=== PATIENT | male | born 1990 | race Caucasian/White ===

== ENCOUNTER 2016-10-06 18:09 | Emergency (ER) | payer SELFPAY ==
[~2016-10-06] VITALS: Ht 190.5 cm; Wt 101.7 kg
--- OUTSIDE RECORDS SUMMARY | 2016-10-06 18:13 | XMS REPORT | Continuity of Care Document ---
Author Author [facility] [employer]. Organization [facility]. Address Unknown Phone Unavailable Allergies Medications Problems Procedures Results Encounters ACCT No. Visit Date/Time Discharge Status Pt. Type Provider Facility Loc./Unit Complaint [id number] 03/06/2014 10:20:00 2013 23:59:59 CLS Outpatient [id number] 01/28/2014 05:28:00 2013 06:01:00 DIS Emergency [id number] 11/04/2013 09:22:00 2013 23:59:59 CLS Outpatient
--- OUTSIDE RECORDS SUMMARY | 2016-10-06 18:15 | XMS REPORT | Continuity of Care Document ---
Author Author [facility] [employer]. Organization Via [facility]. Address Unknown Phone Unavailable Allergies Medications Problems Procedures Results Encounters ACCT No. Visit Date/Time Discharge Status Pt. Type Provider Facility Loc./Unit Complaint [id number] 03/06/2014 10:20:00 2013 23:59:59 CLS Outpatient [id number] 01/28/2014 05:28:00 2013 06:01:00 DIS Emergency [id number] 11/04/2013 09:22:00 2013 23:59:59 CLS Outpatient
[2016-10-06] MEDS ORDERED: HYDROmorphone 2 MG/ML (DILAUDID) 1 ML SYRINGE IM ONE (18:35)
[2016-10-06] MEDS ORDERED: PROMETHAZINE 25 MG/ML (PHENERGAN) 1 ML VIAL IM ONE (18:35)
--- NOTE | 2016-10-06 19:25 | Diagnostic Imaging Report ---
INDICATION: Right shoulder injury while lifting weights, pain. DISCUSSION: Three views of the right shoulder were obtained, no comparison. No fracture or dislocation. Alignment is anatomic. The glenohumeral and acromioclavicular joints are well maintained. Soft tissues are unremarkable. IMPRESSION: 1. Negative right shoulder. Dictated by: Dictated on workstation # [id number]
[2016-10-06] MEDS ORDERED: HYDR-3702 PO (20:00)
[2016-10-06 20:09] VITALS: BP 129/76
== END 2016-10-06 20:10 | disposition home or self-care (01) ==
LOC: ED 18:11
DX: G89.11 Acute pain due to trauma (principal); M79.621 Pain in right upper arm; X50.0XXA Overexertion from strenuous movement or load, initial encounter; Y93.B3 Activity, free weights; Y92.89 Other specified places as the place of occurrence of the external cause
CPT/HCPCS: 73030; 96372; 99283; J1170; J2550